=== PATIENT | female | born 1960 | race Caucasian/White ===

== ENCOUNTER 2016-05-04 00:05 | Emergency (ER) | payer BC ==
[~2016-05-04] VITALS: Ht 167.6 cm; Wt 64.4 kg
[2016-05-04 00:15] VITALS: TEMP 36.9; Ht 167.6 cm; Wt 64.4 kg
--- NOTE | 2016-05-04 00:56 | DIAGNOSTIC IMAGING REPORT ---
LEFT HUMERUS 2 VIEWS CLINICAL HISTORY: Fall with left arm pain. FINDINGS: AP and lateral views of the left humerus are obtained. No prior studies are available for comparison at the time of dictation. The skeletal structures are osteopenic. There is an impacted and comminuted fracture of the left humeral head and neck. There is mild medial distraction of the humeral shaft by approximately 5 mm. Overlying soft tissue edema is noted. The shoulder and elbow joints are grossly maintained. The visualized left lung parenchyma appears clear. A prosthetic cardiac valve is noted. IMPRESSION: There is an impacted, comminuted, and minimally distracted fracture through the left humeral head and neck as above. Electronically signed by: Matt Fraser M.D. 05/04/2016 12:55 AM Dictated Date/Time: 05/04/2016 12:53 AM
[2016-05-04] MEDS ORDERED: PERCOCET HOME PACK PO ONE (01:15)
[2016-05-04] MEDS ORDERED: OXYCODONE/ACETAMINOPHEN 5-325 TAB PO ONE (01:15)
[2016-05-04] MEDS ORDERED: OXYC-57 PO (01:18)
--- NOTE | 2016-05-04 01:20 | EMERGENCY ROOM VISIT NOTE ---
History Report prepared by Asaelibchandler: Caro Medina Under the Supervision of: Dr. Shamir Nix D.O. First contact with patient: 00:18 Chief Complaint: ARM PAIN Stated Complaint: CAN NOT MOVE LEFT ARM AFTER FALL History of Present Illness The patient is a 55 year old female who presents to the Emergency Room with complaints of worsening left arm pain following a fall that occurred 2 hours ago. She rates her pain as a 10/10. The patient states that she slipped on some ice this evening and fell on her left side. She states that she cannot move her left arm after the fall. Source of History: patient Onset: 2 hours ago Position: arm (left) Symptom Intensity: 10/10 Quality: other (arm pain) Timing: worsening Note: She states that she cannot move her left arm after the fall. Review of Systems See HPI for pertinent positives & negatives. A total of 10 systems reviewed and were otherwise negative. Past Medical & Surgical Medical Problems: (1) Endometriosis Surgical Problems: (1) H/O mitral valve replacement Family History Cancer Gallbladder disease Social History Smoking Status: Never Smoker Alcohol Use: occasionally Housing Status: lives alone Occupation Status: employed Current/Historical Medications Scheduled PRN Oxycodone/Acetaminophen 5MG/325MG (Percocet 5MG/325MG), 1 TAB PO Q6H PRN for Pain Physical Exam Vital Signs Date Time Temp Pulse Resp B/P Pulse Ox O2 Delivery O2 Flow Rate FiO2 05/04/16 00:15 36.9 99 18 119/79 97 Room Air Physical Exam CONSTITUTIONAL/VITAL SIGNS: Reviewed / noted above. GENERAL: Non-toxic in appearance. INTEGUMENTARY: Warm, dry, and [place]. HEAD: Normocephalic. EYES: without scleral icterus or trauma. ENT/OROPHARYNX: clear and moist. LYMPHADENOPATHY/NECK: Is supple without lymphadenopathy or meningismus. RESPIRATORY: Lungs clear and equal. CARDIOVASCULAR: Regular rate and rhythm. GI/ABDOMEN: Soft and nontender. No organomegaly or pulsatile mass. No rebound or guarding. Normal bowel sounds. EXTREMITIES: Warm and well perfused. She has some discomfort with palpation to the left proximal humerus, distally she is neurovascularly intact . BACK: No CVA tenderness. NEUROLOGICAL: Intact without focal deficits. PSYCHIATRIC: normal affect. MUSCULOSKELETAL: Normally developed with good muscle tone. Medical Decision & Procedures ER Provider Diagnostic Interpretation: X ray results and stated below per my interpretation and radiology interpretation. LEFT HUMERUS 2 VIEWS CLINICAL HISTORY: Fall with left arm pain. FINDINGS: AP and lateral views of the left humerus are obtained. No prior studies are available for comparison at the time of dictation. The skeletal structures are osteopenic. There is an impacted and comminuted fracture of the left humeral head and neck. There is mild medial distraction of the humeral shaft by approximately 5 mm. Overlying soft tissue edema is noted. The shoulder and elbow joints are grossly maintained. The visualized left lung parenchyma appears clear. A prosthetic cardiac valve is noted. IMPRESSION: There is an impacted, comminuted, and minimally distracted fracture through the left humeral head and neck as above. Electronically signed by: Matt Fraser M.D. 05/04/2016 12:55 AM Dictated Date/Time: 05/04/2016 12:53 AM Medications Administered Medications (Trade) Dose Ordered Sig/Placido Route Start Time Stop Time Status Last Admin Dose Admin Oxycodone/ Acetaminophen (Percocet 5-325mg Tab) 1 tab NOW ONCE PO 05/04/16 01:15 05/04/16 01:16 DC 05/04/16 01:08 1 TAB ED Course 0019: Previous medical records were reviewed. The patient was evaluated in room A11. A complete history and physical examination was performed. 0115: Oxycodone/ Acetaminophen 1 tab PO, Oxycodone/ Acetaminophen 5/325 mg 1 homepack PO 0121: On reevaluation, the patient is doing well. I discussed the results and findings with the patient. She verbalized agreement of the treatment plan. The patient was discharged home. Medical Decision The patient is a 55 year old female who presents to the ED with complaints of left arm pain. The patient states that she slipped and fell on the ice and complains of pain in the left shoulder area. X-ray she just a comminuted impaction fracture of the left humerus. The patient was placed in a left arm sling. She was given Percocet by mouth. A prescription for Percocet and Percocet home pack was provided. Differential diagnosis: Etiologies such as fracture, dislocation, intra-abdominal, pneumothorax, intrathoracic , intracranial, neurologic, as well as other traumatic pathologies were entertained. Impression Primary Impression: Shoulder fracture, left Additional Impression: Proximal humeral fracture Scribe Attestation The scribe's documentation has been prepared under my direction and personally reviewed by me in its entirety. I confirm that the note above accurately reflects all work, treatment, procedures, and medical decision making performed by me. Departure Information Dispostion Home / Self-Care Prescriptions Oxycodone/Acetaminophen 5MG/325MG (PERCOCET 5MG/325MG) Tab 1 TAB PO Q6H Y for Pain, #20 TAB Prov: Shamir Nix D.O. 05/04/16 Referrals No Doctor, Assigned (PCP) Cheko Perez, DO Patient Instructions ED Fx Shoulder, My [facility] Additional Instructions Percocet as prescribed. No driving within 6 hours of use. Do not take additional Tylenol while taking Percocet. Follow-up with orthopedics. Keep splint in place until seen by orthopedics. Call Friday for an appointment. Problem Qualifiers Primary Impression: Shoulder fracture, left Encounter type: initial encounter Additional Impression: Proximal humeral fracture Encounter type: initial encounter
[2016-05-04] MEDS ORDERED: ONDANSETRON 4MG OD TAB PO ONE (01:30)
[2016-05-04] MEDS ORDERED: ONDANSETRON HOME PACK 4MG OD TAB PO ONE (01:30)
[2016-05-04 01:35] VITALS: BP 125/90; PULSE 90; O2SAT 98
== END 2016-05-04 01:35 | disposition home or self-care (01) ==
LOC: C.EDB 00:06 → C.EDA 01:35
DX: S42.292A Other displaced fracture of upper end of left humerus, initial encounter for closed fracture (principal); W00.0XXA Fall on same level due to ice and snow, initial encounter; Z95.2 Presence of prosthetic heart valve; N80.9 Endometriosis, unspecified